=== PATIENT | female | born 1985 | race Caucasian/White ===

== ENCOUNTER 2017-08-10 14:41 | Inpatient (IN) | payer OTHER ==
[2017-08-10] MEDS ORDERED: Misoprostol 200 MCG Tab PO PRN (18:38)
[2017-08-10] MEDS ORDERED: Sodium Chloride 0.9% 2.5 ML Syringe FLUSH PRN (18:38)
[2017-08-10] MEDS ORDERED: Carboprost Tromethamine 250 MCG/1 ML Amp IM PRN (18:38)
[2017-08-10] MEDS ORDERED: Sodium Chloride 0.9% 10 ML Syringe FLUSH PRN (18:38)
[2017-08-10] MEDS ORDERED: Methylergonovine 0.2 MG/1 ML Amp IM PRN (18:38)
[2017-08-10] MEDS ORDERED: Lidocaine 1% 50 ML MDV INJECT PRN (18:38)
[2017-08-10] MEDS ORDERED: Nalbuphine 10 MG/1 ML Vial IVPUSH PRN (18:38)
[2017-08-10] MEDS ORDERED: Water For Irrigation,Sterile 1,000 ML Container IRR PRN (18:38)
[2017-08-10] MEDS ORDERED: Butorphanol 1 MG/ML SDV IVPUSH PRN (18:38)
[2017-08-10] MEDS ORDERED: Oxytocin/0.9 % Sodium Chloride 30 UNIT/500 ML BAG IV SCH (18:45)
[2017-08-10] MEDS ORDERED: Lactated Ringers 1,000 ML IV SCH (18:45)
[2017-08-10] MEDS ORDERED: Ampicillin 2 GM in Sodium Chloride 0.9% 100 ML IV ONE (19:00)
[2017-08-10] MEDS ORDERED: fentaNYL 100 MCG/2 ML SDV ONE (19:11)
[2017-08-10] MEDS ORDERED: Ropivacaine 0.2% 2 MG/ML 20 ML SDV ONE (19:12)
[2017-08-10] MEDS ORDERED: Ropivacaine HCl/PF 0 ML ONE (19:12)
--- NOTE | 2017-08-10 19:43 | PCM.PREANE ---
Preanesthetic Assessment - Procedure Proposed Procedure: labor epidural - Anesthesia/Transfusion/Family Hx Anesthesia History: Prior Anesthesia Without Reaction Family History of Anesthesia Reaction: No - Review of Systems General: No Symptoms Pulmonary: No Symptoms Cardiovascular: No Symptoms Gastrointestinal: No Symptoms Neurological: No Symptoms Other: Reports: Depression, Anxiety - Physical Assessment NPO Status Date: 08/10/17 NPO Status Time: 19:42 Height: 1.99 m Weight: 83.461 kg ASA Class: 2 Mental Status: Alert & Oriented x3 Airway Class: Mallampati = 1 Dentition: Reports: Normal Dentition Thyro-Mental Finger Breadths: 3 Mouth Opening Finger Breadths: 3 Lungs: Clear to Auscultation, Normal Respiratory Effort Cardiovascular: Regular Rate, Regular Rhythm - Lab Values: Laboratory Last Values WBC 17.74 K/uL (4.0-11.0) H 08/10/17 18:55 RBC 4.15 M/uL (4.30-5.90) L 08/10/17 18:55 Hgb 9.2 g/dL (12.0-16.0) L 08/10/17 18:55 Hct 30.3 % (36.0-46.0) L 08/10/17 18:55 MCV 73.0 fL (80.0-98.0) L 08/10/17 18:55 MCH 22.2 pg (27.0-32.0) L 08/10/17 18:55 MCHC 30.4 g/dL (31.0-37.0) L 08/10/17 18:55 RDW Std Deviation 44.2 fl (28.0-62.0) 08/10/17 18:55 RDW Coeff of Toy 17 % (11.0-15.0) H 08/10/17 18:55 Plt Count 408 K/uL (150-400) H 08/10/17 18:55 MPV 9.90 fL (7.40-12.00) 08/10/17 18:55 Nucleated RBC % 0.6 /100WBC 08/10/17 18:55 Nucleated RBCs # 0 K/uL 08/10/17 18:55 - Allergies Allergies/Adverse Reactions: Allergies Allergy/AdvReac Type Severity Reaction Status Date / Time No Known Allergies Allergy Verified 06/09/15 17:32 - Blood Blood Available: Yes Product(s) Available: PRBC - Anesthesia Plan Pre-Op Medication Ordered: None - Acknowledgements Anesthesia Type Planned: Epidural Pt an Appropriate Candidate for the Planned Anesthesia: Yes Alternatives and Risks of Anesthesia Discussed w Pt/Guardian: Yes Pt/Guardian Understands and Agrees with Anesthesia Plan: Yes PreAnesthesia Questionnaire [employer] History: Reports: Musculoskeletal History: Reports: Other (See Below) Other Musculoskeletal History: Restless leg syndrome Neurological History: Reports: Migraines Psychiatric History: Reports: Anxiety, Depression - Past Surgical History HEENT Surgical History: Reports: Other (See Below) GI Surgical History: Reports: Cholecystectomy, Other (See Below) - SUBSTANCE USE Smoking Status *Q: Never Smoker Second Hand Smoke Exposure: No Recreational Drug Use History: No - HOME MEDS Home Medications: Home Meds Doxylamine/Pyridoxine HCl [Diclegis Dr 10-10 mg Tablet] 2 tab PO BEDTIME [History] Vit No.124/Iron/FA [ Vitamin Tablet] 1 tab PO DAILY 06/09/15 [ History] Ibuprofen [Motrin] 600 mg PO Q6H PRN #30 tablet 12/06/15 [Rx] - CURRENT (IN HOUSE) MEDS Current Meds: Current Medications Butorphanol Tartrate (Stadol) 1 mg IVPUSH Q1H PRN PRN Reason: Pain Last Admin: 08/10/17 19:07 Dose: 1 mg Carboprost Tromethamine (Hemabate Ds) 250 mcg IM ASDIRECTED PRN PRN Reason: Post Hemorrhage Lactated Ringer's (Ringers, Lactated) 1,000 mls @ 150 mls/hr IV ASDIRECTED [facility] Last Admin: 08/10/17 19:02 Dose: 999 mls/hr Oxytocin/Sodium Chloride (Oxytocin 30 Unit/500 Ml-Ns) 30 unit in 500 mls @ 999 mls/hr IV ASDIRECTED [facility] Ampicillin Sodium 1 gm/ Sodium (Chloride) 50 mls @ 100 mls/hr IV Q4H JUAN JOSE Lidocaine HCl (Xylocaine 1%) 50 ml INJECT .ONCE PRN PRN Reason: Laceration repair Methylergonovine Maleate (Methergine) 0.2 mg IM ASDIRECTED PRN PRN Reason: Post Hemorrhage Misoprostol (Cytotec) 200 mcg PO .ONCE PRN PRN Reason: Post Hemorrhage Nalbuphine HCl (Nubain) 10 mg IVPUSH Q1H PRN PRN Reason: Pain (severe 7-10) Sodium Chloride (Saline Flush) 10 ml FLUSH ASDIRECTED PRN PRN Reason: Keep Vein Open Sodium Chloride (Saline Flush) 2.5 ml FLUSH ASDIRECTED PRN PRN Reason: Keep Vein Open Sterile Water (Sterile Water For Irrigation) 1,000 ml IRR ASDIRECTED PRN PRN Reason: delivery Discontinued Medications Fentanyl (Sublimaze) Confirm Administered Dose 300 mcg .ROUTE .STK-MED ONE Stop: 08/10/17 19:12 Ampicillin Sodium 2 gm/ Sodium (Chloride) 100 mls @ 200 mls/hr IV ONETIME ONE Stop: 08/10/17 19:29 Last Admin: 08/10/17 19:06 Dose: 200 mls/hr Ropivacaine (Naropin 0.2%) Confirm Administered Dose 100 mls @ as directed .ROUTE .STK-MED ONE Stop: 08/10/17 19:13 Ropivacaine (Naropin 0.2%) Confirm Administered Dose 20 ml .ROUTE .STK-MED ONE Stop: 08/10/17 19:13
--- NOTE | 2017-08-10 19:48 | PCM.PRNOTE ---
- Free Text/Narrative Note: called to place epidural for labor pain. discussed procedure with patient and risks including nerve pain, nerve damage, bleeding, infection and unsuccessful epidural. pt agrees and wishes to proceed. sitting up, sterile betadine prep x 3 and drape. Lidocaine 1% SQ at L3. #17 touhy needle advanced GERRY saline. no heme, no paresthesia. catheter placed 14 cm at skin. test dose 3 ml 1.5% lidocaine wuith epinephrine 1:200,000. negative reaction. bolus dosed 100 mcg fentanyl in divided doses and 4 ml ropivicaine. pt feels strong desire to push. Dr Owens in for delivery
[2017-08-10] MEDS ORDERED: Bisacodyl 10 MG Supp RECTAL PRN (20:09)
[2017-08-10] MEDS ORDERED: Lanolin 100% Cream 7 GM Tube TOP PRN (20:09)
[2017-08-10] MEDS ORDERED: Benzocaine/Menthol 20%-0.5% Spray 78 GM Cannister TOP PRN (20:09)
[2017-08-10] MEDS ORDERED: Acetaminophen 500 MG Tab PO PRN ×2 (20:09)
[2017-08-10] MEDS ORDERED: Docusate Sodium 100 MG Cap PO PRN (20:09)
[2017-08-10] MEDS ORDERED: Ibuprofen 400 MG Tab PO PRN (20:09)
[2017-08-10] MEDS ORDERED: Witch Hazel Medicated Pads 40/Jar TOP PRN (20:09)
[2017-08-10] MEDS ORDERED: Ampicillin 1 GM in Sodium Chloride 0.9% 50 ML IV SCH (23:00)
[2017-08-10] MEDS: Ibuprofen 800 MG Tab PO PRN (23:56)
--- NOTE | 2017-08-11 00:27 | OR ---
SURGEON: Eloisa Owens MD DATE OF PROCEDURE: 08/10/2017 PREOPERATIVE DIAGNOSES: 1. Term at 38 weeks' and 1 day. 2. Spontaneous precipitous labor. 3. GBS positive. POSTOPERATIVE DIAGNOSES: 1. Term at 38 weeks' and 1 day. 2. Spontaneous precipitous labor. 3. GBS positive. 4. Delivered. PROCEDURE: Spontaneous vaginal delivery. ANESTHESIA: Epidural. ESTIMATED BLOOD LOSS: 100 mL. COMPLICATIONS: None. DISPOSITION: Mother and baby stable in Labor and Delivery room, bonding. FINDINGS: Female infant, Weight 3740 g, score 8 and 9 at one and five minutes respectively. Grossly normal placenta with 3-vessel cord. Intact perineum. BRIEF HISTORY: Peña is a 31-year-old G2, P1 who presented to Labor and Delivery at about 1500 hours on 08/10 at 38 weeks' and 1 day gestation with a history of contractions since 7 a.m. in the morning, which had steadily increased both in frequency and intensity. She denies vaginal bleeding, leakage of fluid, and reported movement. was complicated for depression and anxiety and she was weaned off SSRI, Zoloft in the 3rd trimester, mood currently stable. GBS positive. On admission, she was 3-cm dilated with irregular contractions. She was allowed to ambulate, reexamined 2 hours later, and was 4-cm dilated. She was then admitted, received Ampicillin for GBS prophylaxis. She requested an epidural for pain management. The epidural was inserted and just as she received the bolus dose, she complained of increased pressure was examined and bulging membranes was visible the introitus. I examined and confirmed that she was fully dilated at station +2. Spontaneous rupture of membranes occurred at that time with clear fluid noted. She was setup for delivery in modified dorsal lithotomy position. She progressed very fast becoming fully fully dilated within an hour of being admitted. PROCEDURE IN DETAIL: She had a spontaneous vaginal delivery of a live female infant in direct occipital anterior position, nuchal cord twice, loose and easily reduced. The anterior and posterior shoulders and the rest of the baby were delivered without difficulty. The baby was vigorous and cried spontaneously at . The baby was delivered onto the maternal abdomen with the nursery nurse in attendance. Delayed cord clamping was performed and the cord was subsequently cut by the father of the baby. With delivery of the , oxytocin infusion, titration was commenced for active management of 3rd stage of labor. Cord blood and gas samples were obtained. Placenta was delivered by controlled cord traction appeared to be complete and intact. Examination of the perineum revealed no lacerations. Uterine massage was performed and the uterus was found to be well-contracted below the umbilicus. Sponge, instrument, and needle counts were correct at the end of the delivery. The patient tolerated the procedure well. ADUMVIV / MODL /[id number] MTDD
[2017-08-11] MEDS: Ibuprofen 800 MG Tab PO PRN ×2 (05:27→20:27)
--- NOTE | 2017-08-11 07:49 | PCM48HPAN ---
Post Anesthesia Note - EVALUATION WITHIN 48HRS OF ANESTHETIC Vital Signs in Normal Range: Yes Patient Participated in Evaluation: Yes Respiratory Function Stable: Yes Airway Patent: Yes Cardiovascular Function Stable: Yes Hydration Status Stable: Yes Pain Control Satisfactory: Yes Nausea and Vomiting Control Satisfactory: Yes Mental Status Recovered: Yes
--- NOTE | 2017-08-11 08:18 | PCM.PNPP ---
<Za Pena - Last Filed: 08/11/17 08:16> - General Info Date of Service: 08/11/17 Functional Status: Reports: Pain Controlled, Tolerating Diet, Ambulating, Urinating - Review of Systems General: Denies: Fever, Weakness, Fatigue Pulmonary: Denies: Shortness of Breath, Pleuritic Chest Pain, Cough Cardiovascular: Denies: Chest Pain, Palpitations, Dyspnea on Exertion Gastrointestinal: Denies: Abdominal Pain Genitourinary: Denies: Dysuria - General Info Date of Service: 08/11/17 - Patient Data Vital Signs - Most Recent: Last Vital Signs Temp 36.8 C 08/11/17 04:30 Pulse 74 08/11/17 04:30 Resp 16 08/11/17 04:30 BP 130/75 08/11/17 04:30 Pulse Ox 99 08/11/17 04:30 Weight - Most Recent: 83.461 kg Lab Results - Last 24 Hours: Laboratory Results - last 24 hr 08/10/17 08/10/17 08/10/17 Range/Units 18:55 18:55 20:44 WBC 17.74 H (4.0-11.0) K/uL RBC 4.15 L (4.30-5.90) M/uL Hgb 9.2 L (12.0-16.0) g/dL Hct 30.3 L (36.0-46.0) % MCV 73.0 L (80.0-98.0) fL MCH 22.2 L (27.0-32.0) pg MCHC 30.4 L (31.0-37.0) g/dL RDW Std Deviation 44.2 (28.0-62.0) fl RDW Coeff of Toy 17 H (11.0-15.0) % Plt Count 408 H (150-400) K/uL MPV 9.90 (7.40-12.00) fL Nucleated RBC % 0.6 /100WBC Nucleated RBCs # 0 K/uL Blood Type A NEGATIVE Antibody Screen NEGATIVE Rhogam Indicated NO, MOM+BABY RH NEG 08/11/17 Range/Units 05:19 WBC (4.0-11.0) K/uL RBC (4.30-5.90) M/uL Hgb 8.3 L (12.0-16.0) g/dL Hct 27.7 L (36.0-46.0) % MCV (80.0-98.0) fL MCH (27.0-32.0) pg MCHC (31.0-37.0) g/dL RDW Std Deviation (28.0-62.0) fl RDW Coeff of Toy (11.0-15.0) % Plt Count (150-400) K/uL MPV (7.40-12.00) fL Nucleated RBC % /100WBC Nucleated RBCs # K/uL Blood Type Antibody Screen Rhogam Indicated Med Orders - Current: Current Medications Acetaminophen (Tylenol Extra Strength) 500 mg PO Q4H PRN PRN Reason: Pain Last Admin: 08/11/17 07:56 Dose: 500 mg Acetaminophen (Tylenol Extra Strength) 1,000 mg PO Q4H PRN PRN Reason: Pain Benzocaine/Menthol (Dermoplast Pain Relief 20%-0.5% [place]) 78 gm TOP ASDIRECTED PRN PRN Reason: Perineal Comfort Measure Bisacodyl (Dulcolax) 10 mg RECTAL .ONCE PRN PRN Reason: Constipation Docusate Sodium (Colace) 100 mg PO BID PRN PRN Reason: Constipation Emollient Ointment (Lansinoh Hpa) 0 gm TOP ASDIRECTED PRN PRN Reason: Sore Nipples Ibuprofen (Motrin) 400 mg PO Q4H PRN PRN Reason: Pain Ibuprofen (Motrin) 800 mg PO Q6H PRN PRN Reason: Pain Last Admin: 08/11/17 05:27 Dose: 800 mg Oxycodone HCl (Oxycodone) 5 mg PO Q2H PRN PRN Reason: Pain Witch Karla (Tucks) 1 pad TOP ASDIRECTED PRN PRN Reason: comfort care Discontinued Medications Butorphanol Tartrate (Stadol) 1 mg IVPUSH Q1H PRN PRN Reason: Pain Last Admin: 08/10/17 19:07 Dose: 1 mg Carboprost Tromethamine (Hemabate Ds) 250 mcg IM ASDIRECTED PRN PRN Reason: Post Hemorrhage Fentanyl (Sublimaze) Confirm Administered Dose 300 mcg .ROUTE .STK-MED ONE Stop: 08/10/17 19:12 Lactated Ringer's (Ringers, Lactated) 1,000 mls @ 150 mls/hr IV ASDIRECTED [facility] Last Admin: 08/10/17 19:02 Dose: 999 mls/hr Oxytocin/Sodium Chloride (Oxytocin 30 Unit/500 Ml-Ns) 30 unit in 500 mls @ 999 mls/hr IV ASDIRECTED [facility] Ampicillin Sodium 1 gm/ Sodium (Chloride) 50 mls @ 100 mls/hr IV Q4H [facility] Ampicillin Sodium 2 gm/ Sodium (Chloride) 100 mls @ 200 mls/hr IV ONETIME ONE Stop: 08/10/17 19:29 Last Admin: 08/10/17 19:06 Dose: 200 mls/hr Ropivacaine (Naropin 0.2%) Confirm Administered Dose 0 mls @ as directed .ROUTE .[facility] ONE Stop: 08/10/17 19:13 Lidocaine HCl (Xylocaine 1%) 50 ml INJECT .ONCE PRN PRN Reason: Laceration repair Methylergonovine Maleate (Methergine) 0.2 mg IM ASDIRECTED PRN PRN Reason: Post Hemorrhage Misoprostol (Cytotec) 200 mcg PO .ONCE PRN PRN Reason: Post Hemorrhage Nalbuphine HCl (Nubain) 10 mg IVPUSH Q1H PRN PRN Reason: Pain (severe 7-10) Ropivacaine (Naropin 0.2%) Confirm Administered Dose 20 ml .ROUTE .[facility]-MED ONE Stop: 08/10/17 19:13 Sodium Chloride (Saline Flush) 10 ml FLUSH ASDIRECTED PRN PRN Reason: Keep Vein Open Sodium Chloride (Saline Flush) 2.5 ml FLUSH ASDIRECTED PRN PRN Reason: Keep Vein Open Sterile Water (Sterile Water For Irrigation) 1,000 ml IRR ASDIRECTED PRN PRN Reason: delivery - Interaction Infant Disposition, : in Room with Family Infant Interaction: Holding Infant Feeding: Attempted ; Nursed Fair/Poor Support Person: - Recovery Exam Fundal Tone: Firm Fundal Level: 1 Fingerbreadths Below Umbilicus Fundal Placement: Midline Lochia Amount: Small Lochia Color: Rubra/Red Perineum Description: Intact, Minimal Bruising/Swelling Episiotomy/Laceration: None Bladder Status: Voiding Urinary Elimination: Voided - Exam Neck: Supple Lungs: Clear to Auscultation, Normal Respiratory Effort Cardiovascular: Regular Rate, Regular Rhythm GI/Abdominal Exam: Normal Bowel Sounds, Soft, Non-Tender, No Distention Extremities: Normal Inspection, Pedal Edema (trace) Skin: Warm, Dry, Intact - Problem List & Annotations (1) Vaginal delivery SNOMED Code(s): 348998583 Code(s): O80 - ENCOUNTER FOR FULL-TERM UNCOMPLICATED DELIVERY Status: Acute Current Visit: No - Problem List Review Problem List Initiated/Reviewed/Updated: Yes - Assessment Assessment:: PPD #1 s/p . Minimal pain and lochia. Breast feeding well. Aim for discharge home tomorrow. - Plan Plan:: Continue routine post- cares. Anticipate discharge home tomorrow. <Kimberly Rolon - Last Filed: 08/11/17 10:45> - Patient Data Vital Signs - Most Recent: Last Vital Signs Temp 36.1 C 08/11/17 08:26 Pulse 82 08/11/17 08:26 Resp 20 08/11/17 08:26 BP 140/74 08/11/17 08:26 Pulse Ox 97 08/11/17 08:26 Lab Results - Last 24 Hours: Laboratory Results - last 24 hr 08/10/17 08/10/17 08/10/17 Range/Units 18:55 18:55 20:44 WBC 17.74 H (4.0-11.0) K/uL RBC 4.15 L (4.30-5.90) M/uL Hgb 9.2 L (12.0-16.0) g/dL Hct 30.3 L (36.0-46.0) % MCV 73.0 L (80.0-98.0) fL MCH 22.2 L (27.0-32.0) pg MCHC 30.4 L (31.0-37.0) g/dL RDW Std Deviation 44.2 (28.0-62.0) fl RDW Coeff of Toy 17 H (11.0-15.0) % Plt Count 408 H (150-400) K/uL MPV 9.90 (7.40-12.00) fL Nucleated RBC % 0.6 /100WBC Nucleated RBCs # 0 K/uL Blood Type A NEGATIVE Antibody Screen NEGATIVE Rhogam Indicated NO, MOM+BABY RH NEG 08/11/17 Range/Units 05:19 WBC (4.0-11.0) K/uL RBC (4.30-5.90) M/uL Hgb 8.3 L (12.0-16.0) g/dL Hct 27.7 L (36.0-46.0) % MCV (80.0-98.0) fL MCH (27.0-32.0) pg MCHC (31.0-37.0) g/dL RDW Std Deviation (28.0-62.0) fl RDW Coeff of Toy (11.0-15.0) % Plt Count (150-400) K/uL MPV (7.40-12.00) fL Nucleated RBC % /100WBC Nucleated RBCs # K/uL Blood Type Antibody Screen Rhogam Indicated Med Orders - Current: Current Medications Acetaminophen (Tylenol Extra Strength) 500 mg PO Q4H PRN PRN Reason: Pain Last Admin: 08/11/17 07:56 Dose: 500 mg Acetaminophen (Tylenol Extra Strength) 1,000 mg PO Q4H PRN PRN Reason: Pain Benzocaine/Menthol (Dermoplast Pain Relief 20%-0.5% [place]) 78 gm TOP ASDIRECTED PRN PRN Reason: Perineal Comfort Measure Bisacodyl (Dulcolax) 10 mg RECTAL .ONCE PRN PRN Reason: Constipation Docusate Sodium (Colace) 100 mg PO BID PRN PRN Reason: Constipation Emollient Ointment (Lansinoh Hpa) 0 gm TOP ASDIRECTED PRN PRN Reason: Sore Nipples Ibuprofen (Motrin) 400 mg PO Q4H PRN PRN Reason: Pain Ibuprofen (Motrin) 800 mg PO Q6H PRN PRN Reason: Pain Last Admin: 08/11/17 05:27 Dose: 800 mg Oxycodone HCl (Oxycodone) 5 mg PO Q2H PRN PRN Reason: Pain Last Admin: 08/11/17 09:01 Dose: 5 mg Witch Karla (Tucks) 1 pad TOP ASDIRECTED PRN PRN Reason: comfort care Discontinued Medications Butorphanol Tartrate (Stadol) 1 mg IVPUSH Q1H PRN PRN Reason: Pain Last Admin: 08/10/17 19:07 Dose: 1 mg Carboprost Tromethamine (Hemabate Ds) 250 mcg IM ASDIRECTED PRN PRN Reason: Post Hemorrhage Fentanyl (Sublimaze) Confirm Administered Dose 300 mcg .ROUTE .STK-MED ONE Stop: 08/10/17 19:12 Lactated Ringer's (Ringers, Lactated) 1,000 mls @ 150 mls/hr IV ASDIRECTED [facility] Last Admin: 08/10/17 19:02 Dose: 999 mls/hr Oxytocin/Sodium Chloride (Oxytocin 30 Unit/500 Ml-Ns) 30 unit in 500 mls @ 999 mls/hr IV ASDIRECTED [facility] Ampicillin Sodium 1 gm/ Sodium (Chloride) 50 mls @ 100 mls/hr IV Q4H JUAN JOSE Ampicillin Sodium 2 gm/ Sodium (Chloride) 100 mls @ 200 mls/hr IV ONETIME ONE Stop: 08/10/17 19:29 Last Admin: 08/10/17 19:06 Dose: 200 mls/hr Ropivacaine (Naropin 0.2%) Confirm Administered Dose 0 mls @ as directed .ROUTE .[facility] ONE Stop: 08/10/17 19:13 Lidocaine HCl (Xylocaine 1%) 50 ml INJECT .ONCE PRN PRN Reason: Laceration repair Methylergonovine Maleate (Methergine) 0.2 mg IM ASDIRECTED PRN PRN Reason: Post Hemorrhage Misoprostol (Cytotec) 200 mcg PO .ONCE PRN PRN Reason: Post Hemorrhage Nalbuphine HCl (Nubain) 10 mg IVPUSH Q1H PRN PRN Reason: Pain (severe 7-10) Ropivacaine (Naropin 0.2%) Confirm Administered Dose 20 ml .ROUTE .STK-MED ONE Stop: 08/10/17 19:13 Sodium Chloride (Saline Flush) 10 ml FLUSH ASDIRECTED PRN PRN Reason: Keep Vein Open Sodium Chloride (Saline Flush) 2.5 ml FLUSH ASDIRECTED PRN PRN Reason: Keep Vein Open Sterile Water (Sterile Water For Irrigation) 1,000 ml IRR ASDIRECTED PRN PRN Reason: delivery - Plan Plan:: patient seen and examined. is going well this am. She is leaning more towards going home this evening. She would like to resume sertraline for PP depression prophylaxis. Discharge instructions reviewed. Infection and bleeding warnings reviewed. Follow up at [facility] 6 weeks.
[2017-08-11] MEDS: oxyCODONE 5 MG Tab PO PRN ×2 (09:01→16:04)
[2017-08-11] MEDS ORDERED: Sertraline 50 MG Tab PO ONE (10:47)
[2017-08-11 20:20] VITALS: BP 132/84
== END 2017-08-11 21:55 | disposition home or self-care (01) | DRG 775 ==
LOC: MW.OBCHECK 14:41 → MW.OB 14:44 → MW.OBCHECK 18:41 → MW.OB 18:42 → OBSVTOIN 20:09 → MW.OB 20:09
PROVIDERS: ADMIT Obstetrics & Gynecology; ATTEND Obstetrics & Gynecology
PROC: 10E0XZZ Delivery of Products of Conception, External Approach (ICD-10-PCS; principal; 2017-08-10)
DX: O62.3 Precipitate labor (principal); O99.824 Streptococcus B carrier state complicating childbirth; O69.1XX0 Labor and delivery complicated by cord around neck, with compression, not applicable or unspecified; Z3A.38 38 weeks gestation of pregnancy; Z37.0 Single live birth
CPT/HCPCS: 36415; 59025; 59409; 85014; 85018; 85027; 86850; 86900; 86901; A9270-GY; J0290; J0595; J2795; J3010; J7030; J7120

== ENCOUNTER 2020-11-08 01:55 | Inpatient (IN) | payer OTHER ==
[2020-11-08] MEDS ORDERED: Sodium Chloride 0.9% 10 ML SDV IV PRN (01:59)
[2020-11-08] MEDS ORDERED: Sodium Chloride 0.9% 2.5 ML Syringe FLUSH PRN (01:59)
[2020-11-08] MEDS ORDERED: Misoprostol 200 MCG Tab PO PRN (01:59)
[2020-11-08] MEDS ORDERED: Carboprost Tromethamine 250 MCG/1 ML Amp IM PRN (01:59)
[2020-11-08] MEDS ORDERED: Sodium Chloride 0.9% 10 ML Syringe FLUSH PRN (01:59)
[2020-11-08] MEDS ORDERED: Water For Irrigation,Sterile 1,000 ML Container IRR PRN (01:59)
[2020-11-08] MEDS ORDERED: Butorphanol 1 MG/ML SDV IVPUSH PRN (01:59)
[2020-11-08] MEDS ORDERED: Lidocaine 1% 50 ML MDV INJECT PRN (01:59)
[2020-11-08] MEDS ORDERED: Methylergonovine 0.2 MG/1 ML Amp IM PRN ×2 (01:59→02:41)
[2020-11-08] MEDS ORDERED: Ampicillin 2 GM in Sodium Chloride 0.9% 100 ML IV ONE (01:59)
[2020-11-08] MEDS ORDERED: Nalbuphine 10 MG/1 ML Vial IVPUSH PRN (01:59)
[2020-11-08] MEDS ORDERED: Tranexamic Acid 1,000 MG in Sodium Chloride 0.9% 100 ML IV PRN ×2 (01:59→02:41)
[2020-11-08] MEDS ORDERED: Oxytocin/0.9 % Sodium Chloride 30 UNIT/500 ML BAG IV SCH (02:00)
[2020-11-08] MEDS ORDERED: Lactated Ringers 1,000 ML IV SCH (02:00)
[2020-11-08] MEDS ORDERED: Oxytocin/0.9 % Sodium Chloride 30 UNIT/500 ML BAG ONE (02:20)
[2020-11-08] MEDS ORDERED: ceFAZolin 1 GM in Premix Bag 1 BAG IV SCH (02:30)
--- NOTE | 2020-11-08 02:40 | PCM.DEL ---
L & D Note - General Info Date of Service: 11/08/20 Mother's Due Date: 11/13/20 - Delivery Note Labor: Spontaneous Delivery Outcome: Livebirth Infant Delivery Mode: Spontaneous Presentation: Left Occiput Anterior (FREDI) Nuchal Cord: None Prep: Other Anesthesia Type: None Episiotomy Type: None Laceration: None Placenta: Intact, Spontaneous Cord: 3 Vessels Estimated Blood Loss: 200 Resuscitation Needed: No [place]: Suctioned Score 1 min: 8 Score 5 min: 9 Delivery Comments (Free Text/Narrative):: Liveborn female 8/9 3720 grams, perineum intact, circumvallate appearing placenta sent to pathology. - General Info Date of Service: 11/08/20 - Patient Data Lab Results Last 24 Hours: Laboratory Results - last 24 hr 11/08/20 Range/Units 02:12 WBC 17.40 H (4.0-11.0) K/uL RBC 4.48 (4.30-5.90) M/uL Hgb 11.5 L (12.0-16.0) g/dL Hct 36.5 (36.0-46.0) % MCV 81.5 (80.0-98.0) fL MCH 25.7 L (27.0-32.0) pg MCHC 31.5 (31.0-37.0) g/dL RDW Std Deviation 44.5 (28.0-62.0) fl RDW Coeff of Toy 15 (11.0-15.0) % Plt Count 450 H (150-400) K/uL MPV 10.80 (7.40-12.00) fL Nucleated RBC % 0.0 /100WBC Nucleated RBCs # 0 K/uL Med Orders - Current: Current Medications Butorphanol Tartrate (Stadol) 1 mg IVPUSH Q1H PRN PRN Reason: Pain Carboprost Tromethamine (Hemabate Ds) 250 mcg IM ASDIRECTED PRN PRN Reason: Post Hemorrhage Oxytocin/Sodium Chloride (Oxytocin 30 Unit/500 Ml-Ns) 30 unit in 500 mls @ 999 mls/hr IV TITRATE JUAN JOSE Tranexamic Acid 1,000 mg/ (Sodium Chloride) 110 mls @ 660 mls/hr IV ONETIME PRN PRN Reason: Bleeding Lactated Ringer's (Ringers, Lactated) 1,000 mls @ 150 mls/hr IV ASDIRECTED [facility] Cefazolin Sodium/Dextrose 1 gm (/ Premix) 50 mls @ 100 mls/hr IV Q8H JUAN JOSE Lidocaine HCl (Xylocaine 1%) 50 ml INJECT ONETIME PRN PRN Reason: Laceration repair Methylergonovine Maleate (Methergine) 0.2 mg IM ASDIRECTED PRN PRN Reason: Post Hemorrhage Misoprostol (Cytotec) 200 mcg PO ONETIME PRN PRN Reason: Post Hemorrhage Nalbuphine HCl (Nubain) 10 mg IVPUSH Q1H PRN PRN Reason: Pain (severe 7-10) Sodium Chloride (Saline Flush) 10 ml FLUSH ASDIRECTED PRN PRN Reason: Keep Vein Open Sodium Chloride (Saline Flush) 2.5 ml FLUSH ASDIRECTED PRN PRN Reason: Keep Vein Open Sodium Chloride (Normal Saline) 10 ml IV ASDIRECTED PRN PRN Reason: IV Use Sterile Water (Sterile Water For Irrigation) 1,000 ml IRR ASDIRECTED PRN PRN Reason: delivery Discontinued Medications Ampicillin Sodium 1 gm/ Sodium (Chloride) 50 mls @ 100 mls/hr IV Q4H [facility] Cefazolin Sodium/Dextrose (Ancef 1 Gm/50 Ml) Confirm Administered Dose 50 mls @ as directed .ROUTE .STK-MED ONE Stop: 11/08/20 02:19 Cefazolin Sodium/Dextrose (Ancef 2 Gm/50 Ml) Confirm Administered Dose 50 mls @ as directed .ROUTE .STK-MED ONE Stop: 11/08/20 02:20 Oxytocin/Sodium Chloride (Oxytocin 30 Unit/500 Ml-Ns) Confirm Administered Dose 30 unit in 500 mls @ as directed .ROUTE .STK-MED ONE Stop: 11/08/20 02:21 - Problem List & Annotations (1) Vaginal delivery SNOMED Code(s): 239053795 Code(s): O80 - ENCOUNTER FOR FULL-TERM UNCOMPLICATED DELIVERY Status: Acute Current Visit: No - Problem List Review Problem List Initiated/Reviewed/Updated: Yes - My Orders Last 24 Hours: My Active Orders 11/08/20 01:59 Patient Status [ADT] Routine Heart Tones [RC] CONTINUOUS Non Stress Test [RC] PER UNIT ROUTINE May Shower [RC] ASDIRECTED Notify Provider [RC] PRN Up ad Cassidy [RC] ASDIRECTED Vaginal Exam [RC] PRN Vital Signs [RC] PER UNIT ROUTINE Butorphanol [Stadol] 1 mg IVPUSH Q1H PRN Carboprost Tromethamine [Hemabate DS] 250 mcg IM ASDIRECTED PRN Lidocaine 1% [Xylocaine 1%] 50 ml INJECT ONETIME PRN Methylergonovine [Methergine] 0.2 mg IM ASDIRECTED PRN Nalbuphine [Nubain] 10 mg IVPUSH Q1H PRN Sodium Chloride 0.9% [Normal Saline] 10 ml IV ASDIRECTED PRN Sodium Chloride 0.9% [Saline Flush] 10 ml FLUSH ASDIRECTED PRN Sodium Chloride 0.9% [Saline Flush] 2.5 ml FLUSH ASDIRECTED PRN Tranexamic Acid [Cyklokapron] 1,000 mg Sodium Chloride 0.9% [Normal Saline] 100 ml IV ONETIME Water For Irrigation,Sterile [Sterile Water for Irrigation] 1,000 ml IRR ASDIRECTED PRN miSOPROStoL [Cytotec] 200 mcg PO ONETIME PRN Scalp Electrode [WOMSER] Per Unit Routine Peripheral IV Insertion Adult [OM.PC] Routine Resuscitation Status Routine 11/08/20 02:00 Lactated Ringers [Ringers, Lactated] 1,000 ml IV ASDIRECTED Oxytocin/0.9 % Sodium Chloride [Oxytocin 30 Unit/500 ML-NS] 30 unit in 500 ml IV TITRATE 11/08/20 02:02 CORONAVIRUS COVID-19 MICHELLE [MOLEC] Routine 11/08/20 02:12 RPR (SYPHILIS SERO) W/ RFLX [REF] Routine TYPE AND SCREEN [BBK] Routine 11/08/20 02:30 ceFAZolin [Ancef 1 GM/50 ML] 1 gm Premix Bag 1 bag IV Q8H
[2020-11-08] MEDS ORDERED: Lanolin 100% Cream 7 GM Tube TOP PRN (02:41)
[2020-11-08] MEDS ORDERED: Ibuprofen 400 MG Tab PO PRN (02:41)
[2020-11-08] MEDS ORDERED: Bisacodyl 10 MG Supp RECTAL PRN (02:41)
[2020-11-08] MEDS ORDERED: Witch Hazel Medicated Pads 40/Jar TOP PRN (02:41)
[2020-11-08] MEDS ORDERED: Acetaminophen 500 MG Tab PO PRN (02:41)
[2020-11-08] MEDS ORDERED: Benzocaine/Menthol 20%-0.5% Spray 78 GM Cannister TOP PRN (02:41)
[2020-11-08] MEDS ORDERED: Docusate Sodium 100 MG Cap PO PRN (02:41)
--- NOTE | 2020-11-08 05:27 | OR ---
SURGEON: Philomena Ho M.D. DATE OF PROCEDURE: 11/08/2020 PREOPERATIVE DIAGNOSES: A 39-1/7-weeks intrauterine , active spontaneous labor. POSTOPERATIVE DIAGNOSES: A 39-1/7-weeks intrauterine , active spontaneous labor, precipitous labor. PROCEDURE: Term spontaneous vaginal delivery. ANESTHESIA: None. ESTIMATED BLOOD LOSS: Less than 300 mL. FINDINGS: A liveborn female, scores 8 and 9, weighing 3720 g. Placenta was spontaneous, Schultze intact, with 3 vessels, with a circumvallate appearance. COMPLICATIONS: None known. DISPOSITION: Stable to Recovery. BRIEF HISTORY: This is a 35-year-old female. She is G3, P2-0-0-2. She presents at 39-1/7 weeks' gestation, active spontaneous labor. She arrived in the parking lot, where her water broke, and she presented to Labor and Delivery. She was here on Labor and Delivery for approximately 28 minutes when she began to feel pressure to push. She is known to be group B strep positive. Ancef was ordered. An IV was placed. However, we did not have time to give the Ancef prior to the delivery. DESCRIPTION OF PROCEDURE: With the patient in dorsal lithotomy position, the patient pushed over 2 contractions to a 5+ station, at which time the head was delivered spontaneously and atraumatically over the perineum with support with subsequent delivery of the infant's shoulders and body without any difficulty. The was bulb suctioned by nose and mouth and handed to the mother in the presence of the nurse attending the delivery. The infant was a liveborn female, scores 8 and 9, weight of 3720 g. After 1 minute, the cord was doubly clamped and cut, and cord blood was collected for cord ABGs as well as routine cord blood sampling. Pitocin was initiated after delivery of the to assist with delivery of the placenta. The Pitocin was delayed somewhat, and the placenta was actually delivered by the time Pitocin was given, however, as IV access had just been established. The placenta was delivered spontaneously, Schultze intact, with 3 vessels. Again, it had a circumvallate appearance; therefore, it was sent to Pathology. Upon inspection of the pelvis and perineum, there were no periurethral, vaginal sidewall, cervical, or rectal lacerations. EBL was less than 300 mL. There were no known complications. CONDITION: Mother and baby are in LDR in good condition. MARY / MECHELLE /[id number]
[2020-11-08] MEDS ORDERED: Ampicillin 1 GM in Sodium Chloride 0.9% 50 ML IV SCH (06:00)
--- NOTE | 2020-11-08 08:33 | PCM.PNPP ---
<Norma Gibson - Last Filed: 11/08/20 08:26> - General Info Date of Service: 11/08/20 Subjective Update: Patient doing well this am. Pain controlled with PO pain meds. Voiding and ambulating appropriately. going well. Functional Status: Reports: Pain Controlled - Review of Systems General: Reports: No Symptoms HEENT: Reports: No Symptoms Pulmonary: Reports: No Symptoms Cardiovascular: Reports: No Symptoms Gastrointestinal: Reports: No Symptoms Genitourinary: Reports: No Symptoms Musculoskeletal: Reports: No Symptoms Skin: Reports: No Symptoms Neurological: Reports: No Symptoms Psychiatric: Reports: No Symptoms - General Info Date of Service: 11/08/20 - Patient Data Vital Signs - Most Recent: Last Vital Signs Temp 97.7 F 11/08/20 03:30 Pulse 77 11/08/20 03:30 Resp 14 11/08/20 03:30 BP 156/78 H 11/08/20 03:30 Pulse Ox Weight - Most Recent: 104.326 kg Lab Results - Last 24 Hours: Laboratory Results - last 24 hr 11/08/20 11/08/20 11/08/20 Range/Units 02:12 02:12 02:19 WBC 17.40 H (4.0-11.0) K/uL RBC 4.48 (4.30-5.90) M/uL Hgb 11.5 L (12.0-16.0) g/dL Hct 36.5 (36.0-46.0) % MCV 81.5 (80.0-98.0) fL MCH 25.7 L (27.0-32.0) pg MCHC 31.5 (31.0-37.0) g/dL RDW Std Deviation 44.5 (28.0-62.0) fl RDW Coeff of Toy 15 (11.0-15.0) % Plt Count 450 H (150-400) K/uL MPV 10.80 (7.40-12.00) fL Nucleated RBC % 0.0 /100WBC Nucleated RBCs # 0 K/uL Cord ABG pH 7.244 (7.18-7.38) Cord ABG Base Excess -5 (-10--2) Cord VBG pH 7.324 (7.25-7.45) Cord VBG Base Excess -4 (-10--2) Blood Type A NEGATIVE Antibody Screen NEGATIVE Screen (NEGATIVE) RhIG Candidate? Rhogam Indicated 11/08/20 Range/Units 03:48 WBC (4.0-11.0) K/uL RBC (4.30-5.90) M/uL Hgb (12.0-16.0) g/dL Hct (36.0-46.0) % MCV (80.0-98.0) fL MCH (27.0-32.0) pg MCHC (31.0-37.0) g/dL RDW Std Deviation (28.0-62.0) fl RDW Coeff of Toy (11.0-15.0) % Plt Count (150-400) K/uL MPV (7.40-12.00) fL Nucleated RBC % /100WBC Nucleated RBCs # K/uL Cord ABG pH (7.18-7.38) Cord ABG Base Excess (-10--2) Cord VBG pH (7.25-7.45) Cord VBG Base Excess (-10--2) Blood Type Antibody Screen Screen NEGATIVE (NEGATIVE) RhIG Candidate? YES Rhogam Indicated YES, BABY RH POS H Med Orders - Current: Current Medications Acetaminophen (Tylenol Extra Strength) 500 mg PO Q4H PRN PRN Reason: Pain Acetaminophen (Tylenol Extra Strength) 1,000 mg PO Q4H PRN PRN Reason: Pain Benzocaine/Menthol (Dermoplast Pain Relief 20%-0.5% [place]) 78 gm TOP ASDIRECTED PRN PRN Reason: Perineal Comfort Measure Bisacodyl (Dulcolax) 10 mg RECTAL ONETIME PRN PRN Reason: Constipation Butorphanol Tartrate (Stadol) 1 mg IVPUSH Q1H PRN PRN Reason: Pain Carboprost Tromethamine (Hemabate Ds) 250 mcg IM ASDIRECTED PRN PRN Reason: Post Hemorrhage Docusate Sodium (Colace) 100 mg PO BID PRN PRN Reason: Constipation Emollient Ointment (Lansinoh Hpa) 0 gm TOP ASDIRECTED PRN PRN Reason: Sore Nipples Oxytocin/Sodium Chloride (Oxytocin 30 Unit/500 Ml-Ns) 30 unit in 500 mls @ 999 mls/hr IV TITRATE JUAN JOSE Tranexamic Acid 1,000 mg/ (Sodium Chloride) 110 mls @ 660 mls/hr IV ONETIME PRN PRN Reason: Bleeding Lactated Ringer's (Ringers, Lactated) 1,000 mls @ 150 mls/hr IV ASDIRECTED JUAN JOSE Cefazolin Sodium/Dextrose 1 gm (/ Premix) 50 mls @ 100 mls/hr IV Q8H JUAN JOSE Tranexamic Acid 1,000 mg/ (Sodium Chloride) 110 mls @ 660 mls/hr IV ONETIME PRN PRN Reason: Bleeding Ibuprofen (Motrin) 400 mg PO Q4H PRN PRN Reason: Pain Ibuprofen (Motrin) 800 mg PO Q6H PRN PRN Reason: Pain Lidocaine HCl (Xylocaine 1%) 50 ml INJECT ONETIME PRN PRN Reason: Laceration repair Methylergonovine Maleate (Methergine) 0.2 mg IM ASDIRECTED PRN PRN Reason: Post Hemorrhage Methylergonovine Maleate (Methergine) 0.2 mg IM ONETIME PRN PRN Reason: Excessive Vaginal Bleeding Misoprostol (Cytotec) 200 mcg PO ONETIME PRN PRN Reason: Post Hemorrhage Nalbuphine HCl (Nubain) 10 mg IVPUSH Q1H PRN PRN Reason: Pain (severe 7-10) Prenat Multivit/[place]/Iron/Folic Ac ( Plus Iron) 1 each PO DAILY JUAN JOSE Sodium Chloride (Saline Flush) 10 ml FLUSH ASDIRECTED PRN PRN Reason: Keep Vein Open Sodium Chloride (Saline Flush) 2.5 ml FLUSH ASDIRECTED PRN PRN Reason: Keep Vein Open Sodium Chloride (Normal Saline) 10 ml IV ASDIRECTED PRN PRN Reason: IV Use Sterile Water (Sterile Water For Irrigation) 1,000 ml IRR ASDIRECTED PRN PRN Reason: delivery Witch Karla (Tucks) 1 pad TOP ASDIRECTED PRN PRN Reason: comfort care Discontinued Medications Ampicillin Sodium 1 gm/ Sodium (Chloride) 50 mls @ 100 mls/hr IV Q4H JUAN JOSE Cefazolin Sodium/Dextrose (Ancef 1 Gm/50 Ml) Confirm Administered Dose 50 mls @ as directed .ROUTE .[facility]-MED ONE Stop: 11/08/20 02:19 Cefazolin Sodium/Dextrose (Ancef 2 Gm/50 Ml) Confirm Administered Dose 50 mls @ as directed .ROUTE .STK-MED ONE Stop: 11/08/20 02:20 Oxytocin/Sodium Chloride (Oxytocin 30 Unit/500 Ml-Ns) Confirm Administered Dose 30 unit in 500 mls @ as directed .ROUTE .STK-MED ONE Stop: 11/08/20 02:21 - Infant Interaction Disposition, : in Room with Family Infant Interaction: Other (see below) ( with father) Infant Feeding: Attempted ; Nursed Fair/Poor Support Person: - Recovery Exam Fundal Tone: Firm Fundal Level: At Umbilicus Fundal Placement: Midline Lochia Amount: Small Lochia Color: Rubra/Red Perineum Description: Intact, Minimal Bruising/Swelling Episiotomy/Laceration: None Bladder Status: Voiding Urinary Elimination: Voided - Exam General: Alert, Oriented, Cooperative HEENT: Pupils Equal, EOMI Neck: Supple Lungs: Clear to Auscultation, Normal Respiratory Effort Cardiovascular: Regular Rate, Regular Rhythm GI/Abdominal Exam: Soft, No Distention, Tender (appropriate) Extremities: Normal Inspection, Non-Tender Skin: Warm, Dry, Intact Neurological: No New Focal Deficit Psy/Mental Status: Alert, Normal Affect, Normal Mood - Problem List & Annotations (1) Vaginal delivery SNOMED Code(s): 388056084 Code(s): O80 - ENCOUNTER FOR FULL-TERM UNCOMPLICATED DELIVERY Status: Acute Current Visit: Yes Onset Date: ~11/08/20 - Problem List Review Problem List Initiated/Reviewed/Updated: Yes - Assessment Assessment:: 35 year old PPD#0 s/p . - Plan Plan:: 35 year old PPD#0 s/p . Vitals stable. Routine pp cares * A negative, rubella immune - rhogam given at 28 week appointment. Will test and give additional rhogam if indicated. * GBS positive - unable to receive antibiotic prophylaxis due to precipitous labor. Will monitor for s/s infection * PO pain medication PRN * Regular diet * - nursing assistance as needed Dispo: stable. <Kimberly Rolon - Last Filed: 11/08/20 13:07> - Patient Data Vital Signs - Most Recent: Last Vital Signs Temp 36.4 C 11/08/20 08:38 Pulse 77 11/08/20 08:38 Resp 19 11/08/20 08:38 BP 136/90 11/08/20 08:38 Pulse Ox 98 11/08/20 08:38 Lab Results - Last 24 Hours: Laboratory Results - last 24 hr 11/08/20 11/08/20 11/08/20 Range/Units 02:12 02:12 02:19 WBC 17.40 H (4.0-11.0) K/uL RBC 4.48 (4.30-5.90) M/uL Hgb 11.5 L (12.0-16.0) g/dL Hct 36.5 (36.0-46.0) % MCV 81.5 (80.0-98.0) fL MCH 25.7 L (27.0-32.0) pg MCHC 31.5 (31.0-37.0) g/dL RDW Std Deviation 44.5 (28.0-62.0) fl RDW Coeff of Toy 15 (11.0-15.0) % Plt Count 450 H (150-400) K/uL MPV 10.80 (7.40-12.00) fL Nucleated RBC % 0.0 /100WBC Nucleated RBCs # 0 K/uL Cord ABG pH 7.244 (7.18-7.38) Cord ABG Base Excess -5 (-10--2) Cord VBG pH 7.324 (7.25-7.45) Cord VBG Base Excess -4 (-10--2) Blood Type A NEGATIVE Antibody Screen NEGATIVE Screen (NEGATIVE) RhIG Candidate? Rhogam Indicated 11/08/20 Range/Units 03:48 WBC (4.0-11.0) K/uL RBC (4.30-5.90) M/uL Hgb (12.0-16.0) g/dL Hct (36.0-46.0) % MCV (80.0-98.0) fL MCH (27.0-32.0) pg MCHC (31.0-37.0) g/dL RDW Std Deviation (28.0-62.0) fl RDW Coeff of Toy (11.0-15.0) % Plt Count (150-400) K/uL MPV (7.40-12.00) fL Nucleated RBC % /100WBC Nucleated RBCs # K/uL Cord ABG pH (7.18-7.38) Cord ABG Base Excess (-10--2) Cord VBG pH (7.25-7.45) Cord VBG Base Excess (-10--2) Blood Type Antibody Screen Screen NEGATIVE (NEGATIVE) RhIG Candidate? YES Rhogam Indicated YES, BABY RH POS H Med Orders - Current: Current Medications Acetaminophen (Tylenol Extra Strength) 500 mg PO Q4H PRN PRN Reason: Pain Acetaminophen (Tylenol Extra Strength) 1,000 mg PO Q4H PRN PRN Reason: Pain Last Admin: 11/08/20 08:51 Dose: 1,000 mg Documented by: Benzocaine/Menthol (Dermoplast Pain Relief 20%-0.5% [place]) 78 gm TOP ASDIRECTED PRN PRN Reason: Perineal Comfort Measure Bisacodyl (Dulcolax) 10 mg RECTAL ONETIME PRN PRN Reason: Constipation Butorphanol Tartrate (Stadol) 1 mg IVPUSH Q1H PRN PRN Reason: Pain Carboprost Tromethamine (Hemabate Ds) 250 mcg IM ASDIRECTED PRN PRN Reason: Post Hemorrhage Docusate Sodium (Colace) 100 mg PO BID PRN PRN Reason: Constipation Emollient Ointment (Lansinoh Hpa) 0 gm TOP ASDIRECTED PRN PRN Reason: Sore Nipples Last Admin: 11/08/20 08:51 Dose: 7 gram Documented by: Oxytocin/Sodium Chloride (Oxytocin 30 Unit/500 Ml-Ns) 30 unit in 500 mls @ 999 mls/hr IV TITRATE JUAN JOSE Tranexamic Acid 1,000 mg/ (Sodium Chloride) 110 mls @ 660 mls/hr IV ONETIME PRN PRN Reason: Bleeding Lactated Ringer's (Ringers, Lactated) 1,000 mls @ 150 mls/hr IV ASDIRECTED JUAN JOSE Cefazolin Sodium/Dextrose 1 gm (/ Premix) 50 mls @ 100 mls/hr IV Q8H JUAN JOSE Tranexamic Acid 1,000 mg/ (Sodium Chloride) 110 mls @ 660 mls/hr IV ONETIME PRN PRN Reason: Bleeding Ibuprofen (Motrin) 400 mg PO Q4H PRN PRN Reason: Pain Ibuprofen (Motrin) 800 mg PO Q6H PRN PRN Reason: Pain Lidocaine HCl (Xylocaine 1%) 50 ml INJECT ONETIME PRN PRN Reason: Laceration repair Methylergonovine Maleate (Methergine) 0.2 mg IM ASDIRECTED PRN PRN Reason: Post Hemorrhage Methylergonovine Maleate (Methergine) 0.2 mg IM ONETIME PRN PRN Reason: Excessive Vaginal Bleeding Misoprostol (Cytotec) 200 mcg PO ONETIME PRN PRN Reason: Post Hemorrhage Nalbuphine HCl (Nubain) 10 mg IVPUSH Q1H PRN PRN Reason: Pain (severe 7-10) Prenat Multivit/[place]/Iron/Folic Ac ( Plus Iron) 1 each PO DAILY JUAN JOSE Sodium Chloride (Saline Flush) 10 ml FLUSH ASDIRECTED PRN PRN Reason: Keep Vein Open Sodium Chloride (Saline Flush) 2.5 ml FLUSH ASDIRECTED PRN PRN Reason: Keep Vein Open Sodium Chloride (Normal Saline) 10 ml IV ASDIRECTED PRN PRN Reason: IV Use Sterile Water (Sterile Water For Irrigation) 1,000 ml IRR ASDIRECTED PRN PRN Reason: delivery Marylu [place] (Tucks) 1 pad TOP ASDIRECTED PRN PRN Reason: comfort care Discontinued Medications Ampicillin Sodium 1 gm/ Sodium (Chloride) 50 mls @ 100 mls/hr IV Q4H JUAN JOSE Cefazolin Sodium/Dextrose (Ancef 1 Gm/50 Ml) Confirm Administered Dose 50 mls @ as directed .ROUTE .STK-MED ONE Stop: 11/08/20 02:19 Cefazolin Sodium/Dextrose (Ancef 2 Gm/50 Ml) Confirm Administered Dose 50 mls @ as directed .ROUTE .STK-MED ONE Stop: 11/08/20 02:20 Oxytocin/Sodium Chloride (Oxytocin 30 Unit/500 Ml-Ns) Confirm Administered Dose 30 unit in 500 mls @ as directed .ROUTE .STK-MED ONE Stop: 11/08/20 02:21 - Plan Plan:: Patient seen and examined--agree with above.
[2020-11-08] MEDS: Acetaminophen 500 MG Tab PO PRN ×2 (08:51→15:01)
[2020-11-08] MEDS ORDERED: Prenatal Multivitamin with Calcium/Folic Acid/Iron Tab PO SCH (09:00)
[2020-11-08] MEDS: Ibuprofen 800 MG Tab PO PRN ×2 (15:01→21:12)
[2020-11-08] MEDS ORDERED: ClonazePAM 0.5 MG Tab PO ONE (23:57)
[2020-11-09 01:20] LABS: BLOOD UREA NITROGEN,BUN 9 mg/dL (7.0-18.0); CARBON DIOXIDE,CO2 23.8 mmol/L (21.0-32.0); CHLORIDE,CL 107 mmol/L (98-107); GLUCOSE RANDOM 90 mg/dL (74-106); POTASSIUM,K 3.9 mmol/L (3.5-5.1); SODIUM,NA 141 mmol/L (136-145)
--- NOTE | 2020-11-09 06:56 | PCM.PNPP ---
- General Info Date of Service: 11/09/20 Functional Status: Reports: Pain Controlled, Tolerating Diet, Ambulating, Urinating - Review of Systems General: Reports: Fatigue. Denies: Fever, Weakness Pulmonary: Denies: Shortness of Breath Cardiovascular: Denies: Chest Pain, Palpitations, Lightheadedness Gastrointestinal: Denies: Abdominal Pain, Nausea, Vomiting Genitourinary: Denies: Flank Pain Musculoskeletal: Reports: No Symptoms Skin: Reports: No Symptoms Neurological: Reports: No Symptoms Psychiatric: Reports: No Symptoms - General Info Date of Service: 11/09/20 - Patient Data Vital Signs - Most Recent: Last Vital Signs Temp 36.1 C 11/09/20 04:56 Pulse 77 11/09/20 04:56 Resp 15 11/09/20 04:56 BP 133/82 11/09/20 04:56 Pulse Ox 97 11/09/20 04:56 Weight - Most Recent: 104.326 kg Lab Results - Last 24 Hours: Laboratory Results - last 24 hr 11/09/20 11/09/20 11/09/20 Range/Units 00:40 00:40 00:40 WBC 15.10 H (4.0-11.0) K/uL RBC 4.01 L (4.30-5.90) M/uL Hgb 10.2 L (12.0-16.0) g/dL Hct 32.6 L (36.0-46.0) % MCV 81.3 (80.0-98.0) fL MCH 25.4 L (27.0-32.0) pg MCHC 31.3 (31.0-37.0) g/dL RDW Std Deviation 42.9 (28.0-62.0) fl RDW Coeff of Toy 15 (11.0-15.0) % Plt Count 293 (150-400) K/uL MPV 10.00 (7.40-12.00) fL Sodium 141 (136-145) mmol/L Potassium 3.9 (3.5-5.1) mmol/L Chloride 107 (98-107) mmol/L Carbon Dioxide 23.8 (21.0-32.0) mmol/L BUN 9 (7.0-18.0) mg/dL Creatinine 0.7 (0.6-1.0) mg/dL Est Cr Clr Drug Dosing 107.01 mL/min Estimated GFR (MDRD) > 60.0 ml/min Glucose 90 (74-106) mg/dL Calcium 8.2 L (8.5-10.1) mg/dL Total Bilirubin 0.4 (0.2-1.0) mg/dL AST 21 (15-37) IU/L ALT 20 (14-63) IU/L Alkaline Phosphatase 139 H (46-116) U/L Total Protein 6.1 L (6.4-8.2) g/dL Albumin 2.0 L (3.4-5.0) g/dL Globulin 4.1 H (2.6-4.0) g/dL Albumin/Globulin Ratio 0.5 L (0.9-1.6) Ur Random Creatinine 62.3 mg/dL U Random Total Protein 29.7 H (<11.9) mg/dL Protein/Creatinin Ratio 0.5 // Range/Units 06:18 WBC (4.0-11.0) K/uL RBC (4.30-5.90) M/uL Hgb 10.4 L (12.0-16.0) g/dL Hct 34.0 L (36.0-46.0) % MCV (80.0-98.0) fL MCH (27.0-32.0) pg MCHC (31.0-37.0) g/dL RDW Std Deviation (28.0-62.0) fl RDW Coeff of Toy (11.0-15.0) % Plt Count (150-400) K/uL MPV (7.40-12.00) fL Sodium (136-145) mmol/L Potassium (3.5-5.1) mmol/L Chloride (98-107) mmol/L Carbon Dioxide (21.0-32.0) mmol/L BUN (7.0-18.0) mg/dL Creatinine (0.6-1.0) mg/dL Est Cr Clr Drug Dosing mL/min Estimated GFR (MDRD) ml/min Glucose (74-106) mg/dL Calcium (8.5-10.1) mg/dL Total Bilirubin (0.2-1.0) mg/dL AST (15-37) IU/L ALT (14-63) IU/L Alkaline Phosphatase (46-116) U/L Total Protein (6.4-8.2) g/dL Albumin (3.4-5.0) g/dL Globulin (2.6-4.0) g/dL Albumin/Globulin Ratio (0.9-1.6) Ur Random Creatinine mg/dL U Random Total Protein (<11.9) mg/dL Protein/Creatinin Ratio Med Orders - Current: Current Medications Acetaminophen (Tylenol Extra Strength) 500 mg PO Q4H PRN PRN Reason: Pain Acetaminophen (Tylenol Extra Strength) 1,000 mg PO Q4H PRN PRN Reason: Pain Last Admin: 11/08/20 15:01 Dose: 1,000 mg Documented by: Benzocaine/Menthol (Dermoplast Pain Relief 20%-0.5% [place]) 78 gm TOP ASDIRECTED PRN PRN Reason: Perineal Comfort Measure Bisacodyl (Dulcolax) 10 mg RECTAL ONETIME PRN PRN Reason: Constipation Butorphanol Tartrate (Stadol) 1 mg IVPUSH Q1H PRN PRN Reason: Pain Carboprost Tromethamine (Hemabate Ds) 250 mcg IM ASDIRECTED PRN PRN Reason: Post Hemorrhage Docusate Sodium (Colace) 100 mg PO BID PRN PRN Reason: Constipation Emollient Ointment (Lansinoh Hpa) 0 gm TOP ASDIRECTED PRN PRN Reason: Sore Nipples Last Admin: 11/08/20 08:51 Dose: 7 gram Documented by: Oxytocin/Sodium Chloride (Oxytocin 30 Unit/500 Ml-Ns) 30 unit in 500 mls @ 999 mls/hr IV TITRATE JUAN JOSE Tranexamic Acid 1,000 mg/ (Sodium Chloride) 110 mls @ 660 mls/hr IV ONETIME PRN PRN Reason: Bleeding Lactated Ringer's (Ringers, Lactated) 1,000 mls @ 150 mls/hr IV ASDIRECTED JUAN JOSE Tranexamic Acid 1,000 mg/ (Sodium Chloride) 110 mls @ 660 mls/hr IV ONETIME PRN PRN Reason: Bleeding Ibuprofen (Motrin) 400 mg PO Q4H PRN PRN Reason: Pain Ibuprofen (Motrin) 800 mg PO Q6H PRN PRN Reason: Pain Last Admin: 11/08/20 21:12 Dose: 800 mg Documented by: Lidocaine HCl (Xylocaine 1%) 50 ml INJECT ONETIME PRN PRN Reason: Laceration repair Methylergonovine Maleate (Methergine) 0.2 mg IM ASDIRECTED PRN PRN Reason: Post Hemorrhage Methylergonovine Maleate (Methergine) 0.2 mg IM ONETIME PRN PRN Reason: Excessive Vaginal Bleeding Misoprostol (Cytotec) 200 mcg PO ONETIME PRN PRN Reason: Post Hemorrhage Nalbuphine HCl (Nubain) 10 mg IVPUSH Q1H PRN PRN Reason: Pain (severe 7-10) Prenat Multivit/Regional Clinical Director/Iron/Folic Ac ( Plus Iron) 1 each PO DAILY JUAN JOSE Sertraline HCl (Zoloft) 100 mg PO DAILY JUAN JOSE Sodium Chloride (Saline Flush) 10 ml FLUSH ASDIRECTED PRN PRN Reason: Keep Vein Open Sodium Chloride (Saline Flush) 2.5 ml FLUSH ASDIRECTED PRN PRN Reason: Keep Vein Open Sodium Chloride (Normal Saline) 10 ml IV ASDIRECTED PRN PRN Reason: IV Use Sterile Water (Sterile Water For Irrigation) 1,000 ml IRR ASDIRECTED PRN PRN Reason: delivery Witch Karla (Tucks) 1 pad TOP ASDIRECTED PRN PRN Reason: comfort care Discontinued Medications Clonazepam (Klonopin) 0.5 mg PO ONETIME ONE Stop: 11/08/20 23:58 Last Admin: 11/09/20 00:54 Dose: 0.5 mg Documented by: Ampicillin Sodium 1 gm/ Sodium (Chloride) 50 mls @ 100 mls/hr IV Q4H [facility] Cefazolin Sodium/Dextrose 1 gm (/ Premix) 50 mls @ 100 mls/hr IV Q8H [facility] Stop: 11/09/20 00:16 Cefazolin Sodium/Dextrose (Ancef 1 Gm/50 Ml) Confirm Administered Dose 50 mls @ as directed .ROUTE .STK-MED ONE Stop: 11/08/20 02:19 Cefazolin Sodium/Dextrose (Ancef 2 Gm/50 Ml) Confirm Administered Dose 50 mls @ as directed .ROUTE .STK-MED ONE Stop: 11/08/20 02:20 Oxytocin/Sodium Chloride (Oxytocin 30 Unit/500 Ml-Ns) Confirm Administered Dose 30 unit in 500 mls @ as directed .ROUTE .STK-MED ONE Stop: 11/08/20 02:21 - Interaction Disposition, : [place] in Room with Family Interaction: Other (see below) (infant with father) Infant Feeding: Attempted ; Nursed Fair/Poor Support Person: - Recovery Exam Fundal Tone: Firm Fundal Level: 2 Fingerbreadths Below Umbilicus Fundal Placement: Midline Lochia Amount: Scant Lochia Color: Rubra/Red Perineum Description: Intact, Minimal Bruising/Swelling Episiotomy/Laceration: None Bladder Status: Voiding Urinary Elimination: Voided - Exam General: Alert, Oriented Lungs: Normal Respiratory Effort Cardiovascular: Regular Rate, Regular Rhythm GI/Abdominal Exam: Normal Bowel Sounds, Soft Extremities: Pedal Edema (trace). No: Layla's Sign Skin: Warm, Dry, Intact Neurological: No New Focal Deficit Psy/Mental Status: Alert, Normal Affect, Normal Mood - Problem List & Annotations (1) Vaginal delivery SNOMED Code(s): 890623555 Code(s): O80 - ENCOUNTER FOR FULL-TERM UNCOMPLICATED DELIVERY Status: Acute Current Visit: Yes Onset Date: ~11/08/20 - Problem List Review Problem List Initiated/Reviewed/Updated: Yes - Assessment Assessment:: 35 year old PPD#1 - Plan Plan:: Patient doing well overall, and lochia is minimal. Continue PP cares. BPs are mild range elevated--patient has no symptoms. Will monitor. Did not receive GBBS prophylaxis due to rapid delivery upon presentation--thus will monitor today as well. Labs reassuring.
[2020-11-09] MEDS: Sertraline 100 MG Tab PO SCH (10:04)
[2020-11-09] MEDS: Acetaminophen 500 MG Tab PO PRN (10:05)
[2020-11-09] MEDS: Ibuprofen 800 MG Tab PO PRN ×2 (12:45→22:53)
--- NOTE | 2020-11-10 08:59 | PCM.PNPP ---
- General Info Date of Service: 11/10/20 Functional Status: Reports: Pain Controlled, Tolerating Diet, Ambulating, Urinating - Review of Systems General: Reports: Fatigue. Denies: Fever Pulmonary: Denies: Shortness of Breath Cardiovascular: Denies: Palpitations, Lightheadedness Gastrointestinal: Denies: Abdominal Pain, Nausea, Vomiting Genitourinary: Denies: Flank Pain Musculoskeletal: Reports: No Symptoms Skin: Reports: No Symptoms Neurological: Reports: No Symptoms Psychiatric: Reports: No Symptoms - General Info Date of Service: 11/10/20 - Patient Data Vital Signs - Most Recent: Last Vital Signs Temp 36.3 C 11/10/20 04:00 Pulse 68 11/10/20 04:00 Resp 20 11/10/20 04:00 BP 139/91 H 11/10/20 04:00 Pulse Ox 97 11/10/20 04:00 Weight - Most Recent: 104.326 kg I&O - Last 24 Hours: Intake & Output 11/09/20 11/10/20 11/10/20 22:59 06:59 14:59 Intake Total 2 Balance 2 Lab Results - Last 24 Hours: Laboratory Results - last 24 hr 11/08/20 Range/Units 03:48 Screen NEGATIVE (NEGATIVE) RhIG Candidate? YES Rhogam Indicated YES, BABY RH POS H Med Orders - Current: Current Medications Acetaminophen (Tylenol Extra Strength) 500 mg PO Q4H PRN PRN Reason: Pain Acetaminophen (Tylenol Extra Strength) 1,000 mg PO Q4H PRN PRN Reason: Pain Last Admin: 11/09/20 10:05 Dose: 1,000 mg Documented by: Benzocaine/Menthol (Dermoplast Pain Relief 20%-0.5% [place]) 78 gm TOP ASDIRECTED PRN PRN Reason: Perineal Comfort Measure Bisacodyl (Dulcolax) 10 mg RECTAL ONETIME PRN PRN Reason: Constipation Butorphanol Tartrate (Stadol) 1 mg IVPUSH Q1H PRN PRN Reason: Pain Carboprost Tromethamine (Hemabate Ds) 250 mcg IM ASDIRECTED PRN PRN Reason: Post Hemorrhage Docusate Sodium (Colace) 100 mg PO BID PRN PRN Reason: Constipation Emollient Ointment (Lansinoh Hpa) 0 gm TOP ASDIRECTED PRN PRN Reason: Sore Nipples Last Admin: 11/08/20 08:51 Dose: 7 gram Documented by: Oxytocin/Sodium Chloride (Oxytocin 30 Unit/500 Ml-Ns) 30 unit in 500 mls @ 999 mls/hr IV TITRATE [facility] Tranexamic Acid 1,000 mg/ (Sodium Chloride) 110 mls @ 660 mls/hr IV ONETIME PRN PRN Reason: Bleeding Lactated Ringer's (Ringers, Lactated) 1,000 mls @ 150 mls/hr IV ASDIRECTED [facility] Tranexamic Acid 1,000 mg/ (Sodium Chloride) 110 mls @ 660 mls/hr IV ONETIME PRN PRN Reason: Bleeding Ibuprofen (Motrin) 400 mg PO Q4H PRN PRN Reason: Pain Ibuprofen (Motrin) 800 mg PO Q6H PRN PRN Reason: Pain Last Admin: 11/09/20 22:53 Dose: 800 mg Documented by: Lidocaine HCl (Xylocaine 1%) 50 ml INJECT ONETIME PRN PRN Reason: Laceration repair Methylergonovine Maleate (Methergine) 0.2 mg IM ASDIRECTED PRN PRN Reason: Post Hemorrhage Methylergonovine Maleate (Methergine) 0.2 mg IM ONETIME PRN PRN Reason: Excessive Vaginal Bleeding Misoprostol (Cytotec) 200 mcg PO ONETIME PRN PRN Reason: Post Hemorrhage Nalbuphine HCl (Nubain) 10 mg IVPUSH Q1H PRN PRN Reason: Pain (severe 7-10) Prenat Multivit/Documentation Consultant/Iron/Folic Ac ( Plus Iron) 1 each PO DAILY [facility] Sertraline HCl (Zoloft) 100 mg PO DAILY [facility] Last Admin: 11/09/20 10:04 Dose: 100 mg Documented by: Sodium Chloride (Saline Flush) 10 ml FLUSH ASDIRECTED PRN PRN Reason: Keep Vein Open Sodium Chloride (Saline Flush) 2.5 ml FLUSH ASDIRECTED PRN PRN Reason: Keep Vein Open Sodium Chloride (Normal Saline) 10 ml IV ASDIRECTED PRN PRN Reason: IV Use Sterile Water (Sterile Water For Irrigation) 1,000 ml IRR ASDIRECTED PRN PRN Reason: delivery Witch Karla (Tucks) 1 pad TOP ASDIRECTED PRN PRN Reason: comfort care Discontinued Medications Clonazepam (Klonopin) 0.5 mg PO ONETIME ONE Stop: 11/08/20 23:58 Last Admin: 11/09/20 00:54 Dose: 0.5 mg Documented by: Ampicillin Sodium 1 gm/ Sodium (Chloride) 50 mls @ 100 mls/hr IV Q4H JUAN JOSE Cefazolin Sodium/Dextrose 1 gm (/ Premix) 50 mls @ 100 mls/hr IV Q8H JUAN JOSE Stop: 11/09/20 00:16 Cefazolin Sodium/Dextrose (Ancef 1 Gm/50 Ml) Confirm Administered Dose 50 mls @ as directed .ROUTE .STK-MED ONE Stop: 11/08/20 02:19 Cefazolin Sodium/Dextrose (Ancef 2 Gm/50 Ml) Confirm Administered Dose 50 mls @ as directed .ROUTE .STK-MED ONE Stop: 11/08/20 02:20 Oxytocin/Sodium Chloride (Oxytocin 30 Unit/500 Ml-Ns) Confirm Administered Dose 30 unit in 500 mls @ as directed .ROUTE .STK-MED ONE Stop: 11/08/20 02:21 - Interaction Disposition, : [place] in Room with Family Infant Interaction: Other (see below) (infant with father) Feeding: Attempted ; Nursed Fair/Poor Support Person: - Recovery Exam Fundal Tone: Firm Fundal Level: 2 Fingerbreadths Below Umbilicus Fundal Placement: Midline Lochia Amount: Scant Lochia Color: Rubra/Red Perineum Description: Intact, Minimal Bruising/Swelling Episiotomy/Laceration: None Bladder Status: Voiding Urinary Elimination: Voided - Exam General: Alert, Oriented Lungs: Normal Respiratory Effort Cardiovascular: Regular Rate, Regular Rhythm GI/Abdominal Exam: Normal Bowel Sounds, Soft Extremities: Pedal Edema (trace). No: Layla's Sign Skin: Warm, Dry, Intact Psy/Mental Status: Alert, Normal Affect, Normal Mood - Problem List & Annotations (1) Vaginal delivery SNOMED Code(s): 912609310 Code(s): O80 - ENCOUNTER FOR FULL-TERM UNCOMPLICATED DELIVERY Status: Acute Current Visit: Yes Onset Date: ~11/08/20 - Problem List Review Problem List Initiated/Reviewed/Updated: Yes - My Orders Last 24 Hours: My Active Orders 11/10/20 08:56 Ready for Discharge [RC] PER UNIT ROUTINE - Assessment Assessment:: 35 year old PPD#2 - Plan Plan:: Patient doing well overall--she denies headaches or visual changes. Blood pressures ranging mainly in 130/80s. Will monitor at home. She will call if >140/90. Follow up at [facility] 1 week and 4 weeks. Patient feels very ready to go home. Discharge instructions reviewed. Discharge to home today.
[2020-11-10] MEDS: Sertraline 100 MG Tab PO SCH (09:12)
[2020-11-10 10:27] VITALS: BP 147/85; PULSE 115
== END 2020-11-10 12:59 | disposition home or self-care (01) | DRG 807 ==
LOC: MW.OBCHECK 01:55 → MW.OB 01:56 → MW.OBCHECK 01:59 → OBSVTOIN 02:19 → MW.OB 05:11
PROVIDERS: ADMIT Obstetrics & Gynecology; ATTEND Obstetrics & Gynecology
PROC: 10E0XZZ Delivery of Products of Conception, External Approach (ICD-10-PCS; principal; 2020-11-08)
DX: O99.824 Streptococcus B carrier state complicating childbirth (principal); Z37.0 Single live birth; Z3A.39 39 weeks gestation of pregnancy
CPT/HCPCS: 36415; 59025; 59409; 80053; 82570; 82803; 84156; 85014; 85018; 85027; 85460; 86592; 86850; 86900; 86901; A9270-GY; J2590; J2792